=== PATIENT | female | born 1930 | race Hispanic/Latino ===

== ENCOUNTER 2016-09-25 16:30 | Outpatient (CLI) | payer MEDICARE ==
[2016-09-25 17:17] LABS: Basophils % (Auto) 0.5 % (0.0-1.8); Eosinophils % (Auto) 4.1 % (0.0-4.3); Hemoglobin 11.4 gm/dl (10.1-14.3); Mean Corpuscular HGB Conc 34 % (30-34); Mean Corpuscular Hemoglobin 31 pg (28-32); Mean Corpuscular Volume 93 fl (79-97); Platelet Count 157 K/mm3 (140-440); Red Blood Count 3.66 M/mm3 (3.65-5.03); Red Cell Distribution Width 12.3 % (13.2-15.2); White Blood Count 6.9 K/mm3 (4.5-11.0)
[2016-09-25 17:30] LABS: Albumin 3.9 g/dL (3.9-5); Albumin/Globulin Ratio 1.2 %; BUN/Creatinine Ratio 27.27; Bilirubin,Total 0.2 mg/dL (0.1-1.2); Potassium 4.6 mmol/L (3.6-5.0); Total Protein 7.1 g/dL (6.3-8.2)
== END 2016-09-25 16:31 | disposition home or self-care (01) ==
LOC: LAB 16:30
PROVIDERS: ATTEND Specialist
DX: I63.30 Cerebral infarction due to thrombosis of unspecified cerebral artery (principal); G31.84 Mild cognitive impairment of uncertain or unknown etiology
CPT/HCPCS: 36415; 80053; 82607; 82747; 84439; 84443; 85025

== ENCOUNTER 2016-09-28 09:59 | Outpatient (CLI) | payer MEDICARE | END 2016-09-28 10:00 | disposition home or self-care (01) | LOC: SPVIMAG 09:59 | PROVIDERS: ATTEND Specialist | DX: I63.30 Cerebral infarction due to thrombosis of unspecified cerebral artery (principal) | CPT/HCPCS: 70551 ==